=== PATIENT | female | born 1980 | race Caucasian/White ===

== ENCOUNTER 2018-10-27 19:26 | Emergency (ER) | payer OTHER ==
[~2018-10-27] VITALS: Ht 167.6 cm; Wt 74.8 kg
[2018-10-27 19:51] VITALS: BP 128/65
--- NOTE | 2018-10-27 19:56 | NUR ---
PT AMBULATED TO LOBBY WITH VSS. PROVIDED URINE.
[2018-10-27 20:35] LABS: BASOPHILS % (AUTO) 0.4 % (0.0-2.0); EOSINOPHILS # (AUTO) 0.1 K/uL (0-0.4); EOSINOPHILS % (AUTO) 0.4 % (0.0-4.0); HEMATOCRIT 37.5 % (36-48); HEMOGLOBIN 12.9 g/dL (12.0-16.0); LYMPHOCYTES # (AUTO) 1.3 K/uL (2.5-16.5); LYMPHOCYTES % (AUTO) 10.2 % (20.5-51.1); MEAN CORPUSCULAR HEMOGLOBIN 33 pg (27-31); MEAN CORPUSCULAR HGB CONC 35 g/dL (33-37); MEAN CORPUSCULAR VOLUME 95.4 fL (80-94); MONOCYTES # (AUTO) 1.1 K/uL (0.8-1.0); MONOCYTES % (AUTO) 8.2 % (1.7-9.3); NEUTROPHILS # (AUTO) 10.6 K/uL (1.8-7.7); NEUTROPHILS % (AUTO) 80.8 % (42.2-75.2); PLATELET COUNT (AUTO) 231 K/uL (140-450); RED BLOOD CELL COUNT(AUTO) 3.93 MIL/uL (4.20-5.40); RED CELL DISTRIBUTION WIDTH 12.1 % (11.6-13.7); WHITE BLOOD COUNT (AUTO) 13.1 K/uL (4.8-10.8)
[2018-10-27 20:38] LABS: APPEARANCE,URINE CLEAR (CLEAR); BILIRUBIN,URINE NEGATIVE (NEGATIVE); BLOOD, URINE 3+ (NEGATIVE); COLOR,URINE YELLOW (YELLOW); LEUKOCYTE ESTERASE ,URINE 1+ (NEGATIVE); NITRITE, URINE NEGATIVE (NEGATIVE); UGLUCOSE NEGATIVE (NEGATIVE)
--- NOTE | 2018-10-27 20:40 | NUR ---
PT TAKEN TO CT FROM [facility]
[2018-10-27 21:00] LABS: ALBUMIN 3.7 g/dL (3.4-5.0); ANION GAP 16.1 (8-16); CARBON DIOXIDE 25.9 mmol/L (21-32); CREATININE 0.9 mg/dL (0.6-1.3); TOTAL BILIRUBIN 0.8 mg/dL (0.0-1.0)
[2018-10-27 21:13] LABS: RBC,URINE 11-20 (MOD) /HPF (0-5); WBC,URINE 20-60 /HPF (0-5)
--- NOTE | 2018-10-27 22:00 | NUR ---
PT TAKEN TO BED 12
--- NOTE | 2018-10-27 22:10 | NUR ---
BIB FAMILY WITH C/O RLQ PAIN WITH NAUSEA X 4 DAYS. NO TENDERNESS UPON PALPATION. -VOMITING, - DIAHRREA. DENIES FEVER, SOB, CP AT THIS TIME. STATES SHE HAS HAD ALLERGIES THE LAST MONTH AND HAS BEEN TAKING HER ALLERGY MEDICATION. PATIENT ALERT AND ORIENTED IN BED.
[2018-10-27] MEDS ORDERED: NACL 0.9% 1,000 ML IV ONE (22:15)
[2018-10-27] MEDS ORDERED: KETOROLAC 30 MG/ML VIAL IVP ONE (22:15)
--- NOTE | 2018-10-27 23:27 | NUR ---
REPORTED NO IMPROVEMENT IN PAIN. DR CEBALLOS MADE AWARE. WILL AWAIT ORDERS.
[2018-10-27] MEDS ORDERED: MORPHINE SULFATE 4 MG/ML SYR IVP ONE (23:30)
--- NOTE | 2018-10-28 00:43 | NUR ---
PATIENT STATES PAIN IS NOW TOLERABLE. DR CEBALLOS INFORMED THAT SHE WANTS TO GO HOME.
--- NOTE | 2018-10-28 00:58 | NUR ---
Dr. Koenig evaluating patient at bedside.
[2018-10-28 01:40] VITALS: BP 118/67
--- NOTE | 2018-10-28 01:41 | NUR ---
Patient discharged with v/s stable. Written and verbal after care instructions given and explained. Patient alert, oriented and verbalized understanding of instructions. Ambulatory with steady gait. All questions addressed prior to discharge. ID band removed. Patient advised to follow up with PMD. Rx of CIPRO, ZOFRAN, NORCO given. Patient educated on indication of medication including possible reaction and side effects. Opportunity to ask questions provided and answered.
== END 2018-10-28 01:41 | disposition home or self-care (01) ==
LOC: MED 19:26
DX: N39.0 Urinary tract infection, site not specified (principal)
CPT/HCPCS: 36415; 74176; 80053; 81001; 83690; 85025; 87086; 96374; 96375; 99284; J1885; J2270; J7030; 87186